=== PATIENT | male | born 1985 | race Caucasian/White ===

== ENCOUNTER → 2017-04-16 | Outpatient (CLI) | payer OTHER ==
[2017-04-21 11:03] LABS: QUANTIF TB AG-NIL 0.04 IU/ML; QUANTIFERON NIL 0.03 IU/ML
== END | disposition home or self-care (01) ==
LOC: C.LABSPEC 12:30
PROVIDERS: ATTEND Dermatology
DX: L40.0 Psoriasis vulgaris (principal)